=== PATIENT | male | born 1965 | race African-American/Black ===

== ENCOUNTER 2016-07-22 14:44 | Emergency (ER) | payer BC ==
[2016-07-22 15:16] VITALS: BP 132/91
--- NOTE | 2016-07-22 15:55 | RAD ---
INDICATION: Pain. Tendinitis. COMPARISON: None TECHNIQUE: AP, lateral, and oblique views were obtained. FINDINGS: There are no acute bony findings. 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 There is a tiny metallic density foreign body in the webspace between the first and second digits. No additional findings. IMPRESSION: NO ACUTE FINDINGS.
--- NOTE | 2016-07-22 16:50 | UC ---
Upper Extremity HPI - History of Current Complaint Chief Complaint: UCUpperExtremity Stated Complaint: WRIST INJURY Time Seen by Provider: 07/22/16 15:50 - Allergies/Home Medications Allergies/Adverse Reactions: Allergies Allergy/AdvReac Type Severity Reaction Status Date / Time No Known Allergies Allergy Verified 08/20/14 11:22 Home Medications: Home Medications Ibuprofen [Motrin Ib] 800 mg 07/22/16 [History] PMH/Surg Hx/FS Hx/Imm Hx Cardiovascular History Of: Reports: Hypertension - Surgical History Surgical History: None - Social History Alcohol Use: Daily Alcohol Amount: A 6 PACK A NIGHT Substance Use Type: None Smoking Status (MU): Heavy Every Day Tobacco Smoker Type: Cigarettes Household Exposure Type: Cigarettes Physical Exam Vital Signs: Initial Vital Signs Temp 98.8 F 07/22/16 15:11 Pulse 92 07/22/16 15:11 Resp 18 07/22/16 15:11 BP 132/91 07/22/16 15:11 Pulse Ox 96 07/22/16 15:11
--- NOTE | 2016-07-22 16:52 | UC ---
Upper Extremity HPI - HPI Summary HPI Summary: right wrist pain x 3-4 weeks. Worse the past 2 days, and now radiates to his right shoulder. No injury. Is left handed. Worse with twisting movement. Has tried ibuprofen without relief. Has not tried a splint. Is a mendez. - History of Current Complaint Chief Complaint: UCUpperExtremity Stated Complaint: WRIST INJURY Time Seen by Provider: 07/22/16 15:50 Hx Obtained From: Patient Onset/Duration: Gradual Onset, Lasting Weeks, Still Present Severity Initially: Moderate Severity Currently: Moderate Pain Intensity: 6 Pain Scale Used: 0-10 Numeric Location Of Pain: Is Discrete @ - right wrist and base of right thumb, Radiates To - right arm and right shoulder Character: Sharp Aggravating Factor(s): Movement Alleviating Factor(s): Nothing Associated Signs And Symptoms: Positive: Numbness/Tingling Related History: Dominant Hand Left - Allergies/Home Medications Allergies/Adverse Reactions: Allergies Allergy/AdvReac Type Severity Reaction Status Date / Time No Known Allergies Allergy Verified 08/20/14 11:22 Home Medications: Home Medications Ibuprofen [Motrin Ib] 800 mg 07/22/16 [History] PMH/Surg Hx/FS Hx/Imm Hx Cardiovascular History Of: Reports: Hypertension - Surgical History Surgical History: Yes Surgery Procedure, Year, and Place: pins in left hip as child - Family History Known Family History: Positive: Hypertension, Other - hip dislocations - Social History Occupation: Employed Full-time Alcohol Use: Daily Alcohol Amount: A 6 PACK A NIGHT Substance Use Type: None Smoking Status (MU): Heavy Every Day Tobacco Smoker Type: Cigarettes Household Exposure Type: Cigarettes Review of Systems Constitutional: Negative Respiratory: Negative Cardiovascular: Negative Motor: Negative Neurovascular: Negative Musculoskeletal: Arthralgia Neurological: Negative Psychological: Negative All Other Systems Reviewed And Are Negative: Yes Physical Exam Triage Information Reviewed: Yes Appearance: Well-Appearing, Well-Nourished, Pain Distress Vital Signs: Initial Vital Signs Temp 98.8 F 07/22/16 15:11 Pulse 92 07/22/16 15:11 Resp 18 07/22/16 15:11 BP 132/91 07/22/16 15:11 Pulse Ox 96 07/22/16 15:11 Vital Signs Reviewed: Yes Eyes: Positive: Conjunctiva Clear ENT: Positive: Normal ENT inspection, Hearing grossly normal. Negative: Muffled /hoarse voice Neck: Positive: Supple, Nontender Respiratory: Positive: No respiratory distress Cardiovascular: Positive: RRR, No Murmur, Pulses Normal, Brisk Capillary Refill Musculoskeletal: Positive: Strength Intact, ROM Intact, Other: - pain at base of thumb and wrist. Snuff box tenderness Neurological: Positive: Alert, Muscle Tone Normal Psychological Exam: Normal Upper Extremity Course/Dx - Differential Dx/Diagnosis Differential Diagnosis/HQI/PQRI: Arthritis, Fracture (Closed), Strain, Sprain Provider Diagnoses: right wrist pain. possible carpal tunnel syndrome
== END 2016-07-22 17:35 | disposition home or self-care (01) ==
LOC: UCEAST 14:44
DX: M25.531 Pain in right wrist (principal); R20.0 Anesthesia of skin; R20.2 Paresthesia of skin; I10 Essential (primary) hypertension; F17.210 Nicotine dependence, cigarettes, uncomplicated
CPT/HCPCS: 99212; G0463